=== PATIENT | male | born 1985 | race Caucasian/White ===

== ENCOUNTER 2016-05-24 14:01 | Emergency (ER) ==
[2016-05-24 14:13] VITALS: BP 159/88; TEMP 98.2; BMI 28.1
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
[2016-05-24] MEDS ORDERED: LIDOCAINE 1 % AMP 5 ML (SUTURES) IM STA (14:30)
[2016-05-24] MEDS ORDERED: TENIVAC IM ONE (14:30)
[2016-05-24] MEDS ORDERED: ROCEPHIN IM STA (14:30)
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
== END 2016-05-24 15:14 | disposition home or self-care (01) ==
LOC: ED 14:01
DX: S61.411A Laceration without foreign body of right hand, initial encounter (principal); W51.XXXA Accidental striking against or bumped into by another person, initial encounter
CPT/HCPCS: 90471; 96372; 99283